=== PATIENT | male | born 1980 | race Caucasian/White ===

== ENCOUNTER → 2016-03-31 | Outpatient (CLI) | payer BC ==
[2016-03-31 09:53] LABS: DAYS OF ABSTINENCE 4.5; METHOD OF COLLECTION MASTURBATION; SEMEN COLOR YELLOW-GRAY (GRY/GRYWHTE); SEMEN TIME OF COLLECTION 727; SEMEN VOLUME 4.4 ML (>1.5); TYPE OF SPECIMEN CONTAINER STERILE CONTAINER
[2016-03-31 19:42] LABS: SPERM VIABILITY STAIN NOT INDICATED % (>58%)
== END | disposition home or self-care (01) ==
LOC: C.LAB 08:44
DX: N46.9 Male infertility, unspecified (principal)